=== PATIENT | male | born 1990 | race Caucasian/White ===

== ENCOUNTER 2019-02-02 19:51 | Emergency (ER) | payer BC ==
[2019-02-02] MEDS ORDERED: Diphtheria,Pertussis(Acell),Tetanus Vaccine 0.5 ML SDV IM ONE (20:31)
--- NOTE | 2019-02-02 20:50 | EDM.PDOC ---
ED HPI GENERAL MEDICAL PROBLEM - General Chief Complaint: Laceration Stated Complaint: RIGHT HAND FISH HOOK Time Seen by Provider: 02/02/19 19:54 Source of Information: Reports: Patient History Limitations: Reports: No Limitations - History of Present Illness INITIAL COMMENTS - FREE TEXT/NARRATIVE: This patient got a fishhook in his right thumb just a short while prior to arrival. Last tetanus was just short of 5 years ago. - Related Data Allergies Allergy/AdvReac Type Severity Reaction Status Date / Time cephalexin [From Keflex] Allergy Cannot Verified 02/02/19 20:09 Remember Sulfa (Sulfonamide Allergy Cannot Verified 02/02/19 20:09 Antibiotics) Remember Home Meds: Home Meds NK [No Known Home Meds] 02/02/19 [History] Past Medical History - Past Surgical History GI Surgical History: Reports: Appendectomy, Colonoscopy Social & Family History - Tobacco Use Smoking Status *Q: Never Smoker ED ROS GENERAL - Review of Systems Review Of Systems: ROS reveals no pertinent complaints other than HPI. ED EXAM, SKIN/RASH Exam: See Below Exam Limited By: No Limitations General Appearance: Alert, WD/WN, No Apparent Distress Extremities: Other (There is a small treble hook embedded in the pad of the right thumb. Neurovascular tendon all intact.) Course - Vital Signs Last Recorded V/S: Last Vital Signs Temp 35.2 C 02/02/19 20:12 Pulse 92 02/02/19 20:12 Resp 16 02/02/19 20:12 BP 138/94 H 02/02/19 20:12 Pulse Ox 98 02/02/19 20:12 - Orders/Labs/Meds Orders: Active Orders 24 hr Category Date Time Status Vaccines to be Administered [RC] PER UNIT ROUTINE Care 02/02/19 20:31 Active Meds: Medications Discontinued Medications Generic Name Dose Route Start Last Admin Trade Name Freq PRN Reason Stop Dose Admin Diphtheria/Tetanus/Acell Pertussis 0.5 ml 02/02/19 20:31 Adacel IM 02/02/19 20:32 .ONCE ONE - Re-Assessments/Exams Free Text/Narrative Re-Assessment/Exam: 02/02/19 20:48 The hook which was small treble hook was easily removed with a single snatching motion. The wound was cleaned and Band-Aid applied and he received Adacel IM Departure - Departure Time of Disposition: 20:49 Disposition: Home, Self-Care 01 Condition: Fair Clinical Impression: Fish hook injury of right thumb - Discharge Information Referrals: PCP,None [Primary Care Provider] - Additional Instructions: Wash with soap and water daily and apply a Band-Aid. No other treatment needed except just watch for any signs of infection area - My Orders Last 24 Hours: My Active Orders 02/02/19 20:31 Vaccines to be Administered [RC] PER UNIT ROUTINE - Assessment/Plan Last 24 Hours: My Active Orders 02/02/19 20:31 Vaccines to be Administered [RC] PER UNIT ROUTINE
== END 2019-02-02 21:26 | disposition home or self-care (01) ==
LOC: JP.ED 19:51
DX: S60.351A Superficial foreign body of right thumb, initial encounter (principal); Z23 Encounter for immunization; Z88.1 Allergy status to other antibiotic agents; Z88.2 Allergy status to sulfonamides; Z90.49 Acquired absence of other specified parts of digestive tract; W45.8XXA Other foreign body or object entering through skin, initial encounter
CPT/HCPCS: 90471; 90715; 99282

== ENCOUNTER 2023-07-04 21:00 | Emergency (ER) | payer BC, OTHER ==
[2023-07-04] MEDS ORDERED: Tetracaine HCl/PF 0.5% 4 ML Bottle EYELF ONE (23:07)
== END 2023-07-04 23:49 | disposition home or self-care (01) ==
LOC: JP.ED 21:00
DX: S05.02XA Injury of conjunctiva and corneal abrasion without foreign body, left eye, initial encounter (principal); Z88.0 Allergy status to penicillin; Z88.1 Allergy status to other antibiotic agents; W20.8XXA Other cause of strike by thrown, projected or falling object, initial encounter
CPT/HCPCS: 99282; 99283